=== PATIENT | male | born 1995 | race African-American/Black ===

== ENCOUNTER 2018-07-20 02:19 | Emergency (ER) | payer MEDICAID ==
[~2018-07-20] VITALS: Ht 177.8 cm; Wt 69.0 kg
[2018-07-20] MEDS ORDERED: ONDANSETRON HCL 4MG/2ML INJ IV STA (02:42)
[2018-07-20 02:56] LABS: EOSINOPHILS % 4.7 % (0.0-5.0); HEMATOCRIT. 40.6 % (42.0-52.0); HEMOGLOBIN. 13.9 g/dL (14.0-18.0); LYMPHOCYTES % 30.5 % (20.0-50.0); MEAN CORPUSCULAR VOLUME 93.2 fL (80.0-94.0); MEAN PLATELET VOLUME 7.2 fl (7.4-10.4); MONOCYTES % 8.9 % (2.0-8.0); NEUTROPHILS % 54.9 % (40.0-76.0); PLATELET 164 x1000/uL (130-400); RED BLOOD CELL COUNT 4.35 mill/uL (4.7-6.1); RED CELL DISTRIBUTION WIDTH 13.7 % (11.6-14.6)
[2018-07-20 03:01] LABS: CHLORIDE 106 mEq/L (98-107)
[2018-07-20 03:06] LABS: ETHANOL BLOOD < 10 mg/dL
[2018-07-20 05:04] LABS: *AMPHETAMINES SCREEN URINE PRESUMTIVE POSITIVE (NEGATIVE); *BARBITURATES SCREEN URINE NEGATIVE (NEGATIVE)
[2018-07-20 05:05] LABS: *BENZODIAZEPINES SCREEN URINE PRESUMTIVE POSITIVE (NEGATIVE); *COCAINE SCREEN URINE NEGATIVE (NEGATIVE); CANNABINOID URINE SCREEN PRESUMTIVE POSITIVE (NEGATIVE); METHADONE URINE SCREEN NEGATIVE (NEGATIVE); OPIATES URINE SCREEN NEGATIVE (NEGATIVE)
[2018-07-20 05:08] LABS: PHENCYCLIDINE URINE SCREEN NEGATIVE (NEGATIVE)
[2018-07-20] MEDS ORDERED: POTASSIUM CHLORIDE 20MEQ TABLET SR PO NR (06:00)
[2018-07-20 13:42] VITALS: BP 102/60
== END 2018-07-20 13:43 | disposition home or self-care (01) ==
LOC: EDBD 02:19 → ER 02:19
DX: F12.129 Cannabis abuse with intoxication, unspecified (principal); F15.10 Other stimulant abuse, uncomplicated; F13.10 Sedative, hypnotic or anxiolytic abuse, uncomplicated; R41.82 Altered mental status, unspecified
CPT/HCPCS: 36415; 71045; 80053; 80305; 80320; 85025; 96374; 99284; J2405; Z7610; G0480